=== PATIENT | female | born 1955 | race Caucasian/White ===

== ENCOUNTER 2023-06-28 15:11 | Emergency (ER) | payer MEDICARE, OTHER, SELFPAY ==
--- NOTE | 2023-06-28 15:08 | ECG_ITS ---
APPROVED REPORT Exam: Resting ECG HR:117 bpm ECG Measurements Heart Rate 117 AXES OK 188 P 78 QRSd 76 QRS 89 QT 304 T 79 QTc 374 Conclusion SINUS TACHYCARDIA POSSIBLE RIGHT ATRIAL ENLARGEMENT [0.25mV P-WAVE] SEPTAL MYOCARDIAL INFARCTION , PROBABLY OLD [40+ ms Q WAVE IN V1/V2] ABNORMAL ECG UNCONFIRMED REPORT Electronically signed by : Saran Reyes MD 06/28/2023 20:15:34
[2023-06-28 15:11] VITALS: BP 147/107; PULSE 120; RESP 30; TEMP 36.6; O2SAT 95; BMI 18.8
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
--- NOTE | 2023-06-28 15:15 | ED_ITS ---
Discharge Plan Disposition Patient Disposition: Home, Self-Care Prescriptions Prescriptions: New ipratropium-albuterol 0.5 mg-3 mg(2.5 mg base)/3 mL solution for nebulization 3 ml inhalation Q4H PRN (Reason: shortness of breath) Qty: 180 2RF Rx Instructions: until breathing returns to target peak flow/parameters prednisone 20 mg tablet 40 mg PO DAILY 5 Days Qty: 10 0RF amoxicillin-pot clavulanate 875-125 mg tablet 1 tab PO BID 5 Days Qty: 10 0RF Referrals Follow up/Referrals: Paris Michaud [Primary Care Provider] - See instructions Activity Restrictions/Add. Instructions Additional Instructions/Restrictions: Try to stop smoking, talk to your family doctor about smoking cessation to prevent your COPD and lung disease from getting worse. [employer] Operator (lung doctor) information is here, call to schedule an appointment to further monitor your COPD. Call your family doctor to establish care for this visit to the emergency department and schedule follow-up within 48 hours to ensure improvement. If you have any worsening of your condition or any other concerning signs or symptoms, return to the emergency department or your primary care doctor for further evaluation. DuoNebs every 4 hours as needed, prednisone every morning for 5 days, Augmentin twice daily for 5 days. Clinical Impressions Clinical Impression: Acute exacerbation of chronic obstructive pulmonary disease, Acute hypoxemic respiratory failure Discharge ED Provider: Chetan Yusuf HPI General Chief Complaint: Chest Pain Stated Complaint: SOA Time Seen by Provider: 06/28/23 15:12 History of Present Illness HPI narrative: 67-year-old male with no relevant medical history presenting with shortness of breath. Patient states that she smokes, has been smoking for years. Probably has COPD. Has never been diagnosed with anything. Does not take any medications. Current illness started about 10 days prior and has gotten worse. Today, feels like someone is sitting on my chest right in the middle. The chest pressure is throughout the precordium, moves toward her back. Associated with shortness of breath, cough productive of white sputum, as well as difficulty lying flat and sleeping. Related Data Previous Rx's Medication Instructions Recorded amoxicillin 875 mg-potassium 1 tab PO BID 5 days #10 tabs 06/28/23 clavulanate 125 mg tablet ipratropium 0.5 mg-albuterol 3 mg 3 ml inhalation Q4H PRN shortness 06/28/23 (2.5 mg base)/3 mL nebulization of breath #180 mL soln prednisone 20 mg tablet 40 mg PO DAILY 5 days #10 tabs 06/28/23 Allergies Allergy/AdvReac Type Severity Reaction Status Date / Time No Known Allergies Allergy Verified 06/28/23 15:36 [facility] Disclaimer: The information contained in this section may have been updated after the patient was seen, as this information can be updated by other users. Social History Smoking Status: Current every day smoker alcohol intake: never current occupational status: unemployed Travel in the last 8 weeks: None ROS Obtained: Yes All systems reviewed & no additional complaints except as documented Physical Exam General General appearance: alert and in distress (Secondary to work reading) Neck Neck exam: Present normal inspection and trachea midline Chest Chest inspection: Present normal inspection and symmetric chest wall rise Respiratory Respiratory exam: Present respiratory distress, accessory muscle use, prolonged expiratory phase and other (Decreased, quiet breath sounds throughout. No obvious wheezes or focal breath sound); Absent wheezes or stridor Cardiovascular Cardiovascular exam: Present normal rhythm and tachycardia Extremities Exam Extremities exam: Absent edema Neurological Exam Neurological exam: Present alert, oriented X3 and CN II-XII intact Skin Skin exam: Present warm and dry; Absent cyanosis, diaphoresis or pallor HEART Score HEART Score HEART Score assessment performed?: Yes History (anamnesis): Slightly suspicious ECG: Normal Age: >65 years Risk factors: 1-2 risk factors Troponin: </= normal limit HEART Score: 3 Critical Care Critical Care Time Critical Care Time: Yes (respiratory) Attestation: On 06/28/23, the high probability of a clinically significant, sudden or life threatening deterioration of the following system(s) required my full and direct attention, intervention and personal management. The time I documented below is in addition to time spent performing reported procedures but includes the following listed in this critical care notation. Total Time Total Critical Care Time: 40 Medical Decision Making Medical Records Medical records reviewed: Yes I reviewed the patient's medical records. Pancho Inquiry Pt receiving controlled substance: No Pancho was queried for this patient: No Vital Signs Vital Signs: 06/28/23 15:11 06/28/23 15:30 06/28/23 16:00 Temperature 97.9 F Temperature Source Oral Pulse Rate 91 H 96 H Pulse Rate [Right] 120 H Respiratory Rate 30 H Blood Pressure 150/92 H 157/89 H Blood Pressure [Right Arm] 147/107 H Blood Pressure Mean [Right Arm] 120 Blood Pressure Source [Right Arm] Automatic Cuff 02 Sat by Pulse Oximetry 95 99 94 L Oxygen Delivery Method Nasal Cannula Nasal Cannula Nasal Cannula Oxygen Flow Rate (LPM) 2 3 3 06/28/23 16:30 Temperature Temperature Source Pulse Rate 74 Pulse Rate [Right] Respiratory Rate Blood Pressure 132/82 Blood Pressure [Right Arm] Blood Pressure Mean [Right Arm] Blood Pressure Source [Right Arm] 02 Sat by Pulse Oximetry 95 Oxygen Delivery Method Nasal Cannula Oxygen Flow Rate (LPM) 3 Lab Data Labs: Lab Results 06/28/23 15:12: Specimen Source Left radial, O2 % 5l, ABG pH 7.43, ABG pCO2 42.8, ABG pO2 70.6 L, ABG HCO3 27.6 H, ABG Total CO2 28.9 H, ABG O2 Saturation 94, ABG Base Excess 3.2 H, Dennis Test Acceptable 06/28/23 15:17: WBC 9.0, RBC 5.09, Hgb 16.2, Hct 48.0 H, MCV 94.3, MCH 31.8 H, MCHC 33.8, RDW 13.9, Plt Count 387, MPV 9.1, Neut % (Auto) 67.7, Lymph % (Auto) 21.8, Logan % (Auto) 8.6, Eos % (Auto) 1.1, Baso % (Auto) 0.9, Neut # (Auto) 6.1, Lymph # (Auto) 2.0, Logan # (Auto) 0.8, Eos # (Auto) 0.1, Baso # (Auto) 0.1, D- Dimer 0.44, Sodium 139, Potassium 4.1, Chloride 101, Carbon Dioxide 32 H, Anion Gap 10.1, BUN 5 L, Creatinine 0.60, Estimated Creat Clear 43, Estimated GFR 100, Est GFR ( Amer) 121, Glucose 128 H, Hemoglobin A1c 5.5, Calcium 9.3, Total Bilirubin 0.7, AST 47 H, ALT 37, Alkaline Phosphatase 119, Troponin I < 0.01, NT-Pro-B Natriuret Pep 196 H, Total Protein 7.6, Albumin 4.4, Globulin 3.2, Albumin/Globulin Ratio 1.4, Triglycerides 134, Cholesterol 192, LDL Cholesterol Direct 84.26 L, VLDL Cholesterol 27, HDL Cholesterol 60, Cholesterol/HDL Ratio 3.2 06/28/23 15:19: SARS-CoV-2 (PCR) Not detected, Influenza A Untype (PCR) Not detected, Influenza Type B (PCR) Not detected 06/28/23 15:17 06/28/23 15:17 Response Orders (Tests/Meds): ED MEDICATIONS Discontinued Medications Generic Name Dose Route Start Last Admin Trade Name Freq PRN Reason Stop Dose Admin Albuterol/Ipratropium 6 ml 06/28/23 15:12 06/28/23 15:30 Ipratropium/Albuterol 3 Ml Neb IH 06/28/23 15:13 6 ml ONCE ONE Administration Amoxicillin/Clavulanate Potassium 1 each 06/28/23 15:50 06/28/23 15:58 Amoxicillin/Clavulanate Potassium 875/125mg Tablet PO 06/28/23 15:51 1 each ONCE ONE Administration Aspirin 324 mg 06/28/23 15:12 06/28/23 15:44 Aspirin 81mg Chewable Tablet PO 06/28/23 15:13 324 mg ONCE ONE Administration Methylprednisolone Sodium Succinate 125 mg 06/28/23 15:12 06/28/23 15:44 Methylprednisolone Sod Succ 125mg Vial IV 06/28/23 15:13 125 mg ONCE ONE Administration ORDERS Category Date Time Status CXR --portable [XR chest portable] Stat Exams 06/28/23 15:12 Completed Brain Natriuretic Peptide Stat Lab 06/28/23 15:17 Completed Complete Blood Count Auto Diff Stat Lab 06/28/23 15:17 Completed Comprehensive Metabolic Panel Stat Lab 06/28/23 15:17 Completed D-Dimer Stat Lab 06/28/23 15:17 Completed Hemoglobin A1C Stat Lab 06/28/23 15:17 Completed Lactic Acid Stat Lab 06/28/23 15:14 Ordered Lipid Panel Stat Lab 06/28/23 15:17 Completed Rapid PCR Covid and Flu A/B Stat Lab 06/28/23 15:19 Completed Troponin I Q3H Lab 06/28/23 18:15 Ordered Troponin I Q3H Lab 06/28/23 21:15 Ordered Troponin I Stat Lab 06/28/23 15:17 Completed Blood Culture Stat Micro 06/28/23 16:01 Received ABG [Arterial Blood Gas] Stat RT 06/28/23 15:12 Completed ECG initial Besson Routine Y 06/28/23 15:08 Completed MDM Narrative Medical Decision Narrative: 67-year-old male with no relevant medical history presenting with shortness of breath. Patient states that she smokes, has been smoking for years. Probably has COPD. Has never been diagnosed with anything. Does not take any medications. Current illness started about 10 days prior and has gotten worse. Today, feels like someone is sitting on my chest right in the middle. The chest pressure is throughout the precordium, moves toward her back. Associated with shortness of breath, cough productive of white sputum, as well as difficulty lying flat and sleeping. Patient be noted the patient has COPD, still currently smoking, not undergoing any treatments and likely has other comorbidities that are not at goal care complicating care. History was obtained via conversation with patient and . On arrival, patient hemodynamically stable, alert, oriented x4, appropriate, GCS 15, moving all extremities spontaneously, pupils equal and reactive to light. Full physical exam performed and significant for anxious appearing woman in mild respiratory distress. Tachypneic, tachycardic about 115 to 120 bpm. Patient 91% on room air and not on home oxygen. Lungs are quiet diffusely without focal breath sounds. She does have a prolonged expiratory phase. No lower extremity edema and cardiac exam otherwise normal. Differential includes COPD exacerbation, pneumonia, CHF, PE, pneumothorax, ACS, VT, thoracic dissection, among others. Patient was given Solu-Medrol, aspirin, DuoNeb for symptomatic management and correction of underlying abnormalities. Patient was started on BiPAP with initial evaluation and concern for COPD exacerbation. Workup independently interpreted and significant for nonactionable CBC or chemistry. ABG nonactionable as well with moderate hypoxemia. COVID-negative. Chest x-ray with severe COPD but no consolidation or airspace disease. D-dimer negative. See radiology read for full review of final results. Independent interpretation of EKG shows sinus tachycardia [address] or T wave changes concerning for acute ischemia. [place], QRS, QT intervals within normal limits. Normal axis. On immediate reevaluation, patient stating she feels much better. Saturating 100% with BiPAP 12/8 and nontachypneic. ABG resulted with pH 7.4, CO2 43, O2 71 and bicarb 27. Lactate 1.6 and normal. Because patient feeling much better after nebs and BiPAP, BiPAP was removed and she was placed on nasal cannula oxygen. Heart score 3. On reevaluation, patient feeling much better saturating appropriately on room air about 95%, nontachypneic. She was given first dose of amoxicillin here. Given patient presentation, workup, history, this most likely represents COPD exacerbation. Because patient at baseline without signs or symptoms of clinical decompensation, deemed appropriate for discharge. Results were relayed to patient who voiced understanding and were agreeable to outpatient management and follow up. At the time of discharge the patient was hemodynamically stable, tolerating PO, and mobilizing appropriately.
--- NOTE | 2023-06-28 15:19 | PC.NURSE ---
RT at BS to obtain ABG and start pt on BiPAP
[2023-06-28 15:25] VITALS: RESP 16; RESP 25
[2023-06-28 15:29] LABS: Coronavirus 19, PCR Not Detected (NotDetected); Influenza A, PCR Not Detected (NotDetected); Influenza B, PCR Not Detected (NotDetected)
[2023-06-28 15:30] VITALS: BP 150/92; PULSE 91; O2SAT 99
[2023-06-28] MEDS: IPRATROPIUM/ALBUTEROL 3 ML NEB 6 ML IH (15:30)
[2023-06-28 15:31] LABS: ABG Base Excess 3.2 mmol/L (-2.4-2.3); ABG HCO3 27.6 mmhg (22.0-26.0); ABG Oxygen Saturation 94 % (90-100); ABG PCO2 42.8 mmhg (35.0-45.0); ABG PH 7.43 mmol/L (7.35-7.45); ABG PO2 70.6 mmhg (80-100); ABG TCO2 28.9 mmhg (23-27)
[2023-06-28 15:31] LABS: Basophils # 0.1 K/mm3 (0-0.2); Basophils % 0.9 % (0.1-2.0); Eosinophils # 0.1 K/mm3 (0.0-0.4); Eosinophils % 1.1 % (0.1-12.0); Hemoglobin 16.2 g/dL (12.2-16.2); Lymphocytes % 21.8 % (10-50); Mean Corpuscular HGB Conc 33.8 g/dL (31.8-35.4); Mean Corpuscular Hemoglobin 31.8 pg (27.0-31.2); Mean Corpuscular Volume 94.3 fl (81-99); Mean Platelet Volume 9.1 fl (7.4-10.4); Monocytes # 0.8 K/mm3 (0.1-1.0); Monocytes % 8.6 % (1.7-9.3); Neutrophils # 6.1 K/mm3 (1.8-7.8); Neutrophils % 67.7 % (37.0-80.0); Platelet Count 387 K/mm3 (142-424); Red Blood Count 5.09 M/mm3 (4.20-5.40); Red Cell Distribution Width 13.9 % (11.5-17.5)
[2023-06-28 15:33] LABS: Allen's Test Acceptable; Oxygen 5L %
[2023-06-28 15:34] LABS: Source Left Radial
[2023-06-28 15:40] LABS: Chloride 101 mmol/L (98-107)
[2023-06-28 15:41] LABS: Potassium 4.1 mmoL/L (3.5-5.1); Sodium 139 mmol/L (136-145)
[2023-06-28 15:43] LABS: Alanine Aminotransferase 37 U/L (12-78); Alkaline Phosphatase 119 U/L (38-126); Aspartate Amino Transferase 47 U/L (14-36); Bilirubin,Total 0.7 mg/dl (0.2-1.3); Blood Urea Nitrogen 5 mg/dl (7-17); Creatinine Clearance Estimated 43 mL/min (50-200); Estimated Glomerular Filt Rate 100 ml/min (>60); GFR (African American) 121 ML/MIN (>60)
[2023-06-28 15:44] LABS: Albumin Level 4.4 g/dl (3.5-5.0); Albumin/Globulin Ratio 1.4 (1.1-1.8); Anion Gap 10.1 mEq/L (5-15); Calcium 9.3 mg/dl (8.4-10.2); Carbon Dioxide 32 mmol/L (22.0-30.0); Globulin 3.2 g/dL (1.3-3.2); Glucose 128 mg/dl (74-100); Total Protein,Serum 7.6 g/dl (6.3-8.2)
[2023-06-28] MEDS: METHYLPREDNISOLONE SOD SUCC 125MG VIAL 125 MG IV (15:44)
[2023-06-28] MEDS: ASPIRIN 81MG CHEWABLE TABLET 324 MG PO (15:44)
[2023-06-28 15:48] LABS: D-Dimer 0.44 ug/mL (0.0-0.5)
[2023-06-28 15:53] LABS: NT Pro Brain Natriuretic Pep. 196 pg/mL (0-125)
[2023-06-28 15:56] LABS: Troponin I < 0.01 ng/ml (0.00-0.034)
[2023-06-28] MEDS: AMOXICILLIN/CLAVULANATE POTASSIUM 875/125MG TABLET 1 EACH PO (15:58)
[2023-06-28 16:00] VITALS: BP 157/89; PULSE 96; O2SAT 94
[2023-06-28 16:06] LABS: Hemoglobin A1C 5.5 % (4.0-6.0)
[2023-06-28 16:30] VITALS: BP 132/82; PULSE 74; O2SAT 95
[2023-06-28 16:37] LABS: Chol/HDL Ratio 3.2 (1-3.5); Cholesterol 192 mg/dl (140-200); HDL Cholesterol 60 mg/dl (40-60); Triglycerides 134 mg/dl (30-150); VLDL Cholesterol 27 mg/dL (0-40)
[2023-06-28 16:47] LABS: Direct LDL Cholesterol 84.26 mg/dL (100-129)
--- NOTE | 2023-06-28 17:06 | PC.NURSE ---
DR VIVAS AT BEDSIDE
[2023-06-28 17:17] VITALS: BP 130/78; PULSE 82; RESP 20; TEMP 36.7; O2SAT 90
== END 2023-06-28 17:23 | disposition home or self-care (01) ==
PROVIDERS: Emergency Provider Emergency Medicine; PCP Family Medicine
DX: J96.01 Acute respiratory failure with hypoxia (principal); J44.1 Chronic obstructive pulmonary disease with (acute) exacerbation; F17.200 Nicotine dependence, unspecified, uncomplicated; R00.0 Tachycardia, unspecified
CPT/HCPCS: 71045; 80053; 80061; 82803; 83036; 83880; 84484; 85025; 85378; 87040; 87636; 93005; 96374; 99285